=== PATIENT | male | born 1945 | race Caucasian/White ===

== ENCOUNTER 2020-12-07 10:47 | Day surgery (SDC) | payer MEDICARE, OTHER ==
--- OUTSIDE RECORDS SUMMARY | 2020-11-14 15:12 | XMSREPORT | Referral Summary ---
:1945 Author Organization [facility] s Address [address] [place] [address] [address] [place] [address] Care Team Providers Name Role Phone Provider, Attributed RESOURCE Attributed Provider Unavailab Fátima Rose PA-C Primary Care Provider Reason for Referral Transitions of Care (Routine) Status Reason Specialty Diagnoses / Referred By Referred To Procedures Contact Contact New Request Patient Diagnoses Screening for colon cancer Sarai Engle, Health, [facility] Pre[facility] [place], [address] [place] [id number] Phone: Fax: Reason for Visit Reason Comments Medication Management Encounter Details Date Type Department Care Team Description 11/13/2020 Office Visit [facility] Sarai Engle, IFG (impaire d fasting glucose) (Primary Dx); [facility] [place] Essential hypertension; [address] [place] Coronary artery disease invo lving mechoopda heart without angina pectoris, unspecified vessel or lesion type; [place] [address] 1 Screening for colon cancer [phone] [place] [address] Allergies No Known Allergiesdocumented as of this encounter (statuses as of 11/13/2020) Medications Medication Sig Dispensed Refills Start Date End Date Status lisinopril Take 1 90 tablet 3 11/13/2020 Active (PRINIVIL, tablet (20 ZESTRIL) 20 mg mg) by mouth tabletIndications: 1 time per Essential day hypertension clopidogrel Take 1 90 tablet 3 11/13/2020 Active (PLAVIX) 75 mg tablet (75 tabletIndications: mg) by mouth Coronary artery 1 time per disease involving day mechoopda heart without angina pectoris, unspecified vessel or lesion type freestyle lancets 2 times a 0 Di scontinued MISC day as 1 (Therapy needed. completed) blood glucose test USE DAILY TO 1 box 5 12/21/2012 02 Discontinued strip (FREESTYLE) TEST BLOOD 1 ( Therapy GLUCOSE AND complete d) NEEDED. clopidogrel TAKE 1 60 tablet 0 08/05/2016 Discont inued (PLAVIX) 75 mg TABLET BY 1 (Reor edward) tabletIndications: MOUTH 1 TIME Coronary artery PER DAY. disease involving mechoopda heart without angina pectoris, unspecified vessel or lesion type lisinopril Take 1 90 tablet 0 08/07/2016 Disconti nued (PRINIVIL, tablet (20 1 (Reorder ) ZESTRIL) 20 mg mg total) by tabletIndications: mouth 1 time Essential per day hypertension blood glucose test Use to test 51 each 0 08/13/2016 11/13/19 2 Discontinued strip (FREESTYLE blood one 1 ( erapy LITE)Indications: time a day. completed) Controlled type 2 diabetes mellitus without complication, without long-term current use of insulin (HCC) cephalexin Take 1 40 capsule 0 05/06/2020 Discont inued (KEFLEX) 500 mg capsule (500 1 ( Therapy capsuleIndications mg) by mouth completed) : Cellulitis of 4 times a hand, left, Joint day infection (HCC) sulfamethoxazole-t Take 1 20 tablet 0 05/06/2020 Discontinued rimethoprim double tablet by 1 ( Therapy strength (BACTRIM mouth 2 co mpleted) DS, SEPTRA DS) times a day 800-160 mg double strength tabletIndications: Cellulitis of hand, left, Joint infection (HCC) documented as of this encounter (statuses as of 11/13/2020) Active Problems Problem Noted Date NSTEMI (non-ST elevated myocardial infarction) 014 Former smoker 03/13/2014 Obesity (BMI 30-39.9) 03/13/2014 Gout 12/25/2010 Essential hypertension 08/23/2009 Diabetes type 2, controlled 02/29/2008 Other and unspecified hyperlipidemia 02/29/2008 documented as of this encounter (statuses as of 11/13/2020) Immunizations Name Administration Dates Next Due FLU VACCINE TRIVALENT 07/07/2012 MULTIDOSE(Fluvirin,Afluria) FLU VACCINE HIGH DOSE 65YR+(Fluzone) 10/06/2013 H1N1 Vaccine 10/10/2009 Influenza Vaccine 08/11/2015, 07/18/2011, 08/06/2000 Pneumococcal Polysaccharide PPSV23 06/09/2013 TDAP 05/06/2020 Td(adult)preservative free 03/30/2006 Zoster Live(Zostavax) 06/09/2013 documented as of this encounter Social History Tobacco Use Types Packs/Day Years Used Date Former Smoker Cigarettes Quit: 09/22/18 96 Smokeless Tobacco: Never Used Alcohol Use Drinks/Week oz/Week Comments No 0 Cans of beer 0.0 Sex Assigned at Date Recorded Not on file documented as of this encounter Last Filed Vital Signs Vital Sign Reading Time Taken Comments Blood Pressure 104/66 11/13/2020 11:06 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 Pulse 77 11/13/2020 11:06 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 Temperature 36.4 C (97.6 F) 11/13/2020 11:06 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 Respiratory Rate 16 11/13/2020 11:06 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 Oxygen Saturation 96% 11/13/2020 11:06 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 Inhaled Oxygen Concentration - - Weight 97 kg (213 lb 12.8 oz) 11/13/2020 11:06 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 Height 177.8 cm (5' 10") 11/13/2020 11:06 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 Body Mass Index 30.68 11/13/2020 11:06 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 documented in this encounter Functional Status Functional Status Response Date of Assessment Is the person deaf or does he/she have serious difficulty No 03/13/2014 hearing? Do you have difficulty with walking, balance, climbing No 11/13/2020 stairs, or had a fall in the last 3 months? Does the patient have difficulty dressing or bathing? No 03/13/2014 Because of a physical, mental, or emotional condition; No 03/13/2014 does this person have difficulty doing errands alone such as visiting a doctor's office or shopping? Cognitive Status Response Date of Assessment Because of a physical, mental, or emotional condition; No 03/13/2014 does this person have serious difficulty concentrating, remembering, or making decisions? documented as of this encounter Patient Instructions Patient InstructionsSarai Engle PA-C - 11/13/2020 11:26 AM CSTCurrent medications have been refilled for 1 year without changes. Updated blood work today. We will check electrolytes, liver function, kidney function, sugars (A1C),cholesterol. I'm specifically interested in seeing your sugar and cholesterol. I will call you tomorrow with these results. If sugars and/or cholesterol is high, we'll discuss starting medication. We wouldn't have to use anything that as been poorly tolerated in the past. NAUTICAL ENGINEERING TECHNOLOGIST documented in this encounter Plan of Treatment Name Type Priority Associated Diagnoses Order S [facility] COMPREHENSIVE METABOLIC Lab Routine [facility] hypertension Expected: 11/13/2020 PANEL Coronary artery disease (Koko roximate), involving mechoopda heart Expir es: 12/14/2021 without angina pectoris, unspecified vessel or lesion type LIPID PANEL Lab Routine Essential hypert ension Expected: 11/13/2020 Coronary artery disease (Koko roximate), involving mechoopda heart Expir es: 12/14/2021 without angina pectoris, unspecified vessel or lesion type GLYCATED HEMOGLOBIN Lab Routine IFG (impaired fasting Expected: 11/13/2020 glucose) (Approximate), Expires: 2021 Name Type Priority Associated Diagnoses Order S [facility] CLINIC REFERRAL Referral Routine Screening for colon Order ed: 11/13/2020 ENDOSCOPY NON ONE CHART cancer documented as of this encounter Implants Implanted Type Area Conflict Resolution Professional Device Shelf Model / Identifier Expiration Serial / Lot Date Stnt Resolute [id number] [id number] ([id number] [id number])-03/13/2014 Cardiovascular [employer] 04/20/2015 / Implanted: 03/13/2014 (Quantity not on file) / Explanted: (Quantity not on file) [id number] documented as of this encounter Visit Diagnoses Diagnosis IFG (impaired fasting glucose) - Primary Impaired fasting glucose Essential hypertension Unspecified essential hypertension Coronary artery disease involving mechoopda heart without angina pectoris, unspecified vessel or lesion type Screening for colon cancer Special screening for malignant neoplasm s, colon documented in this encounter
[2020-12-05 17:17] LABS: CORONAVIRUS COVID-19 NAA NEGATIVE (NEGATIVE)
[~2020-12-07 10:47] MED LIST: Midazolam 1 MG/ML 2 ML SDV ONE; Propofol 200 MG/20 ML SDV ONE
[2020-12-07] MEDS ORDERED: Sodium Chloride 0.9% 10 ML Syringe FLUSH PRN (11:00)
[2020-12-07] MEDS: Lactated Ringers 1,000 ML IV SCH (11:44)
[2020-12-07] MEDS ORDERED: Propofol 200 MG/20 ML SDV ONE ×2 (12:02→12:10)
[2020-12-07] MEDS ORDERED: Midazolam 1 MG/ML 2 ML SDV ONE (12:10)
--- NOTE | 2020-12-07 12:39 | PCM.HPR ---
H & P Addendum review - H & P Addendum Review Date of Original H & P: 11/13/20 Date Reviewed: 12/07/20 Time Reviewed: 11:50 Patient was Examined: No Changes
--- NOTE | 2020-12-07 12:40 | PCM.OPNOTE ---
- General Post-Op/Procedure Note Date of Surgery/Procedure: 12/07/20 Operative Procedure(s): Colonoscopy Findings: Sig tics Pre Op Diagnosis: Screening Post-Op Diagnosis: Same Anesthesia Technique: MAC Primary Surgeon: Erwin Johnson Anesthesia Provider: Nan Dangelo Complications: None Condition: Good
--- NOTE | 2020-12-13 07:34 | OR ---
Date of Procedure: 12/07/2020 PREOPERATIVE DIAGNOSIS: Colon screening. POSTOPERATIVE DIAGNOSIS: Sigmoid diverticulosis. PROCEDURE: Colonoscopy. ANESTHESIA: IV sedation. PROCEDURE IN DETAIL: Patient was brought to the procedure room where he was placed on his left side and IV sedation administered. Digital rectal exam was performed, which was normal. Colonoscope was inserted and advanced to the level of the cecum without difficulty. Cecal position was confirmed by identifying the appendiceal lumen and ileocecal valve. Prep was good and surfaces were adequately visualized. Upon withdrawing the scope, the ascending, transverse, and descending colon were normal in appearance. Sigmoid colon had multiple medium diverticula present. Rectum was normal and retroflexion was normal. Air was removed and the scope withdrawn. Patient tolerated the procedure well and returned to recovery in stable condition. No further colon screening is necessary due to patient's age. SHEKHAR BARRETT MD /[id number]
== END 2020-12-07 13:26 | disposition home or self-care (01) ==
LOC: LL.SDS 10:47
PROVIDERS: ATTEND Surgery
DX: Z12.11 Encounter for screening for malignant neoplasm of colon (principal); K57.30 Diverticulosis of large intestine without perforation or abscess without bleeding; I10 Essential (primary) hypertension; I25.10 Atherosclerotic heart disease of native coronary artery without angina pectoris; I25.2 Old myocardial infarction; E66.9 Obesity, unspecified; E11.9 Type 2 diabetes mellitus without complications; Z68.30 Body mass index [BMI] 30.0-30.9, adult; Z01.812 Encounter for preprocedural laboratory examination; Z20.822 Contact with and (suspected) exposure to COVID-19; Z87.891 Personal history of nicotine dependence; Z79.899 Other long term (current) drug therapy
CPT/HCPCS: 00812; J2250; J2704; J7120; U0002

== ENCOUNTER 2022-08-18 14:15 | Emergency (ER) | payer MEDICARE, OTHER ==
[2022-08-18] MEDS: Sodium Chloride 0.9% 10 ML Syringe FLUSH PRN (14:51)
[2022-08-18 15:32] LABS: CHLORIDE,CL 101 mmol/L (98-107); SODIUM,NA 135 mmol/L (136-145)
[2022-08-18 15:34] LABS: ANION GAP 16.5 meq/L (7-15); ESTIMATED GFR 64 mL/min (>=60)
[2022-08-18] MEDS: Magnesium Oxide 400 MG Tab PO ONE (15:47)
[2022-08-18 16:08] LABS: CORONAVIRUS COVID-19 NAA NEGATIVE (NEGATIVE); RESPIRATORY SYNCYTIAL VIR NAA NEGATIVE (NEGATIVE)
== END 2022-08-18 16:37 | disposition home or self-care (01) ==
LOC: LL.ED 14:15
DX: R00.2 Palpitations (principal); E83.42 Hypomagnesemia; R05.9 Cough, unspecified; E78.00 Pure hypercholesterolemia, unspecified; I10 Essential (primary) hypertension; M10.9 Gout, unspecified; E11.9 Type 2 diabetes mellitus without complications; E66.9 Obesity, unspecified; Z68.31 Body mass index [BMI] 31.0-31.9, adult; Z79.02 Long term (current) use of antithrombotics/antiplatelets; Z79.899 Other long term (current) drug therapy; Z20.822 Contact with and (suspected) exposure to COVID-19
CPT/HCPCS: 0241U; 36415; 71045; 80053; 83735; 84484; 85025; 93005; 99285; A9270-GY; J3490

== ENCOUNTER 2023-01-24 18:37 | Emergency (ER) | payer MEDICARE, OTHER ==
[2023-01-24 19:08] LABS: BASOPHILS ABSOLUTE AUTO 0.02 K/uL (0.00-0.20); BASOPHILS PERCENT AUTO 0.2 % (0.0-2.0); EOSINOPHILS ABSOLUTE AUTO 0.19 K/uL (0.00-0.50); EOSINOPHILS PERCENT AUTO 2.1 % (0.0-5.0); HEMOGLOBIN 11.9 g/dL (13.1-16.8); LYMPHOCYTES ABSOLUTE AUTO 1.04 K/uL (0.50-3.50); LYMPHOCYTES PERCENT AUTO 11.4 % (10.0-50.0); MEAN CORPUSCULAR HEMOGLOBIN 30.4 pg (28.2-33.3); MEAN CORPUSCULAR VOLUME 89.3 fL (84.0-98.0); MONOCYTES ABSOLUTE AUTO 1.23 K/uL (0.00-1.00); MONOCYTES PERCENT AUTO 13.5 % (2.0-14.0); NEUTROPHILS ABSOLUTE AUTO 6.65 K/uL (1.40-7.00); NEUTROPHILS PERCENT AUTO 72.8 % (45.0-80.0); PLATELET COUNT,PLT 225 K/uL (150-350); RED BLOOD CELL COUNT 3.92 M/uL (4.33-5.41); RED CELL DISTRIBUTION WIDTH 13.9 % (11.2-14.1); WHITE BLOOD CELL COUNT,WBC 9.1 K/uL (4.0-10.2)
[2023-01-24 19:37] LABS: ALBUMIN 3.1 g/dL (3.4-5.0); ANION GAP 10.4 meq/L (7-15); BILIRUBIN TOTAL 0.4 mg/dL (0.2-1.0); CALCIUM 8.6 mg/dL (8.5-10.1); CARBON DIOXIDE,CO2 23.6 mmol/L (21.0-32.0); CREATININE 1.31 mg/dL (0.51-1.17); EST CRCL DRUG DOSING (CG) 51.89 mL/min; POTASSIUM,K 3.5 mmol/L (3.5-5.1); PROTEIN TOTAL,TP 7.1 g/dL (6.4-8.2)
[2023-01-24 20:04] LABS: CORONAVIRUS COVID-19 NAA NEGATIVE (NEGATIVE); INFLUENZA A NAA NEGATIVE (NEGATIVE); INFLUENZA B NAA NEGATIVE (NEGATIVE); RESPIRATORY SYNCYTIAL VIR NAA NEGATIVE (NEGATIVE)
[2023-01-24] MEDS ORDERED: Take Home: Azithromycin 250 MG 5 Day, 6 Tab Pack PO ONE (20:08)
[2023-01-24] MEDS ORDERED: Take Home: Albuterol 6.7 GM Inhaler, 1 Inhaler Pack INH ONE (20:09)
== END 2023-01-24 20:30 | disposition home or self-care (01) ==
LOC: LL.ED 18:37
DX: J18.9 Pneumonia, unspecified organism (principal); E78.00 Pure hypercholesterolemia, unspecified; I10 Essential (primary) hypertension; E11.9 Type 2 diabetes mellitus without complications; E66.9 Obesity, unspecified; Z68.30 Body mass index [BMI] 30.0-30.9, adult; Z79.02 Long term (current) use of antithrombotics/antiplatelets; Z79.899 Other long term (current) drug therapy; Z20.822 Contact with and (suspected) exposure to COVID-19
CPT/HCPCS: 0241U; 36415; 71046; 80053; 85025; 99284; A9270-GY